=== PATIENT | male | born 1995 | race Asian ===

== ENCOUNTER 2022-06-29 15:31 | Emergency (ER) | payer OTHER | END 2022-06-29 16:43 | disposition home or self-care (01) | LOC: ERS 15:31 | DX: S10.91XA Abrasion of unspecified part of neck, initial encounter (principal); R11.0 Nausea; V53.6XXA Passenger in pick-up truck or van injured in collision with car, pick-up truck or van in traffic accident, initial encounter | CPT/HCPCS: 99283 ==